=== PATIENT | female | born 1960 ===

== ENCOUNTER 2017-10-23 05:52 | Inpatient (IN) | payer OTHER ==
[2017-10-14 11:19] VITALS: BMI 25.2
[2017-10-23] MEDS ORDERED: Bupivacaine 0.25% 20 ML INJ IJ ONE (07:18)
[2017-10-23] MEDS ORDERED: Lidocaine/Epinephrine 1% 1:100000 10 ML IJ ONE (07:18)
[2017-10-23] MEDS ORDERED: ceFAZolin IV 1 gm in Dextrose 2 GM/100 ML BAG IVPB ONE (07:18)
[2017-10-23] MEDS ORDERED: Absorbable Gelatin Sponge Size 100 ONE (07:18)
[2017-10-23] MEDS ORDERED: Sodium Chloride 0.9% 40 ML IV ONE (07:18)
[2017-10-23] MEDS ORDERED: Thrombin Topical 5,000 Int Units Spray Kit ONE (07:19)
[2017-10-23] MEDS ORDERED: Bacitracin Ointment 30 GM TUBE ONE (07:19)
[2017-10-23] MEDS ORDERED: Midazolam 2 MG/2 ML VIAL ONE (07:35)
[2017-10-23] MEDS ORDERED: Propofol 10 mg/ml Inj (20 ML) ONE ×2 (07:35→08:24)
[2017-10-23] MEDS ORDERED: Phenylephrine 10 mg/ml Inj ONE (07:37)
[2017-10-23] MEDS ORDERED: ePHEDrine 50 mg/ml Inj ONE (07:37)
[2017-10-23] MEDS ORDERED: Propofol 10 mg/ml 2,000 MG/200 ML VIAL ONE (07:43)
[2017-10-23] MEDS ORDERED: KETAMINE HCL 50 MG/ML SYRINGE ONE (07:43)
[2017-10-23] MEDS ORDERED: Succinylcholine Chloride 20 mg/ml Syr (5 ml) IV ONE (08:01)
[2017-10-23] MEDS ORDERED: Bupivacaine Liposomal Inj 20 ml INFIL ONE (08:30)
[2017-10-23] MEDS ORDERED: Bacitracin 50,000 UNIT in Sodium Chloride 0.9% Irrig 1,000 ML IR SCH (09:00)
[2017-10-23] MEDS ORDERED: HYDROmorphone 0.5 mg/0.5 ml ISec IVP PRN (12:19)
[2017-10-23] MEDS: Potassium Ch 20mEq in D5-1/2NS 1,000 ML IV SCH (15:15)
--- NOTE | 2017-10-23 17:14 | RAD ---
Date of service: 10/23/2017 PROCEDURE: Intraoperative Fluoroscopy. HISTORY: Low back pain and radiculopathy. FINDINGS: Fluoroscopic assistance was provided for fixation and fusion. Please refer to the operative report from [facility]. Total fluoroscopic time (continuous mode) utilized during the procedure 60.4 (seconds). Total exam DLP: 16.41 (mGy)
[2017-10-24] MEDS: Potassium Ch 20mEq in D5-1/2NS 1,000 ML IV SCH ×4 (02:00→22:22)
[2017-10-24] MEDS: Levothyroxine 50 MCG TAB PO SCH (05:49)
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
[2017-10-24 09:04] VITALS: RESP 20
--- NOTE | 2017-10-24 13:21 | CP.PCM.PN ---
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8 mg IV Q4H PRN; Protocol PRN Reason: Pain, moderate (4-7) Last Admin: 10/24/17 10:45 Dose: 4.8 mg Potassium Chloride/Dextrose/Sod Cl (Potassium Chl 20 Meq In D5-1/2ns) 1,000 mls @ 100 mls/hr IV .Q10H [facility] Last Admin: 10/24/17 11:45 Dose: 100 mls/hr Levothyroxine Sodium (Synthroid) 50 mcg PO DAILY@0630 [facility] Last Admin: 10/24/17 05:49 Dose: 50 mcg Pneumococcal Polyvalent Vaccine (Pneumovax 23 Vaccine) 0.5 ml IM .ONCE ONE Stop: 10/25/17 10:01
[2017-10-25] MEDS: Potassium Ch 20mEq in D5-1/2NS 1,000 ML IV SCH ×3 (04:30→14:30)
[2017-10-25] MEDS: Levothyroxine 50 MCG TAB PO SCH (06:49)
[2017-10-25] MEDS ORDERED: Pneumococcal 23-Valent Vaccine IM ONE (10:00)
[2017-10-25] MEDS ORDERED: oxyCODONE 20 mg ER Tab (oxyCONTIN) PO SCH (10:15)
--- NOTE | 2017-10-25 15:56 | CP.PCM.PN ---
Subjective - Date & Time of Evaluation Date of Evaluation: 10/25/17 Time of Evaluation: 15:56 - Subjective Subjective: -FOLLOW UP WITH DR BAKER IN THE OFFICE DIRECTED BY DR. PAULINO---CALL THE OFFICE ON FRIDAY TO MAKE YOUR APPOINTMENT. -FOR PAIN, YOU HAVE BEEN PRESCRIBED THE FOLLOWIN) OXYCONTIN 20 MG---THIS IS VERY STRONG PAIN MEDICINE---IT MAY MAKE YOU DROWSY , SLEEPY, NAUSEOUS, AND GIVE YOU CONSTIPATION. YOU MAY TAKE THIS MEDICATION EVERY 12 HOURS (MORNING AND EVENING). IF YOU EXPERIENCE PAIN IN BETWEEN THE DOSES OF THIS MEDICINE, YOU MAY TAKE PERCOCET (SEE BELOW). 2) PERCOCET 5/325 MG0-- THIS IS ALSO STRONG PAIN MEDICINE ---IT MAY MAKE YOU DROWSY, SLEEPY, NAUSEOUS, AND GIVE YOU CONSTIPATION. YOU MAY TAKE IT EVERY 4-6 HOURS ONLY IF YOU HAVE PAIN IN BETWEEN YOUR OXYCONTIN DOSES. IF YOU DO NOT, THERE IS NO NEED TO TAKE THIS MEDICINE. 3) COLACE ---THIS IS A STOOL SOFTENER---TAKE 1 TABLET 2 TO 3 TIMES A DAY. YOU MAY STOP OR DECREASE THE TIMES YOU TAKE THIS -WALK MUCH YOU CAN AND STAY HYDRATED; THIS WILL HELP WITH YOUR CONSTIPATION. -YOU HAVE BEEN PROVIDED WITH A WALKER. USE FOR AMBULATION AND SAFETY. -YOU HAVE ALSO BEEN GIVEN A PRESCRIPTION FOR A SHOWER CHAIR---GET THIS AT A MEDICAL SUPPLY STORE AND KEEP YOUR RECEIPT SO THAT YOU CAN SUBMIT THIS TO THE INSURANCE COMPANY. -A HOME CARE AGENCY WILL CALL YOU ON FRIDAY OR FRIDAY TO ARRANGE A DAY AND TIME FOR THEM TO START PHYSICAL THERAPY AT HOME WITH YOU. -IF YOU HAVE ANY CONCERNS OR QUESTIONS, DO NOT HESITATE TO CALL DR. LOWERY OR DR. PAULINO. Objective - Vital Signs/Intake and Output Vital Signs (last 24 hours): Temp Pulse Resp BP Pulse Ox 98.2 F 108 H 20 110/73 98 10/25/17 08:34 10/25/17 08:34 10/25/17 08:34 10/25/17 08:34 10/25/17 08:34 Intake and Output: 10/25/17 10/25/17 06:59 18:59 Intake Total 1100 1100 Output Total 700 Balance 1100 400 - Medications Medications: Current Medications Acetaminophen (Tylenol 325mg Tab) 650 mg PO Q6 PRN PRN Reason: Fever >100.4 F Docusate Sodium (Colace) 100 mg PO BID [facility] Last Admin: 10/25/17 10:56 Dose: 100 mg Potassium Chloride/Dextrose/Sod Cl (Potassium Chl 20 Meq In D5-1/2ns) 1,000 mls @ 100 mls/hr IV .Q10H [facility] Last Admin: 10/25/17 08:52 Dose: 100 mls/hr Levothyroxine Sodium (Synthroid) 50 mcg PO DAILY@0630 [facility] Last Admin: 10/25/17 06:49 Dose: 50 mcg Oxycodone HCl (Oxycontin Extended Release Tab) 20 mg PO Q12 [facility] Last Admin: 10/25/17 10:56 Dose: 20 mg
[2017-10-25 17:23] VITALS: BP 124/67; PULSE 89; TEMP 98; O2SAT 95
--- NOTE | 2017-10-25 17:43 | CP.PCM.PN ---
Subjective - Date & Time of Evaluation Date of Evaluation: 10/25/17 Time of Evaluation: 17:39 - Subjective Subjective: SPINE - POD #3 Pt seen OOB sitting in chair. Was seen earlier by PT and cleared for d/c to home. Voiding, passing gas, but no BM yet. VSS. Temp 98-99. Neuro grossly intact. Incision with steri-strips in place. Some dried blood. Plan: Discharge to home. Given scripts for Oxycontin/Percocet, as well as walker. Instructed family to call office Friday to schedule f/u appt w Dr. Logan. Objective - Vital Signs/Intake and Output Vital Signs (last 24 hours): Temp Pulse Resp BP Pulse Ox 98 F 89 20 124/67 95 10/25/17 15:52 10/25/17 15:52 10/25/17 15:52 10/25/17 15:52 10/25/17 15:52 Intake and Output: 10/25/17 10/25/17 06:59 18:59 Intake Total 1100 1900 Output Total 700 Balance 1100 1200 - Medications Medications: Current Medications Acetaminophen (Tylenol 325mg Tab) 650 mg PO Q6 PRN PRN Reason: Fever >100.4 F Docusate Sodium (Colace) 100 mg PO BID [facility] Last Admin: 10/25/17 10:56 Dose: 100 mg Potassium Chloride/Dextrose/Sod Cl (Potassium Chl 20 Meq In D5-1/2ns) 1,000 mls @ 100 mls/hr IV .Q10H [facility] Last Admin: 10/25/17 14:30 Dose: Not Given Levothyroxine Sodium (Synthroid) 50 mcg PO DAILY@0630 [facility] Last Admin: 10/25/17 06:49 Dose: 50 mcg Oxycodone HCl (Oxycontin Extended Release Tab) 20 mg PO Q12 [facility] Last Admin: 10/25/17 10:56 Dose: 20 mg
[2017-10-25] MEDS ORDERED: Oxycodone/Acetaminophen 5/325 mg Tab PO PRN (17:46)
== END 2017-10-25 18:52 | disposition home or self-care (01) | DRG 460 ==
LOC: C.9S 05:52 → C.6T 20:21
PROVIDERS: ADMIT Neurological Surgery; ATTEND Neurological Surgery
PROC: 0ST20ZZ Resection of Lumbar Vertebral Disc, Open Approach (ICD-10-PCS; 2017-10-23)
PROC: 0SG0071 Fusion of Lumbar Vertebral Joint with Autologous Tissue Substitute, Posterior Approach, Posterior Column, Open Approach (ICD-10-PCS; principal; 2017-10-23 07:45)
DX: M43.16 Spondylolisthesis, lumbar region (principal); M51.16 Intervertebral disc disorders with radiculopathy, lumbar region; M48.061 Spinal stenosis, lumbar region without neurogenic claudication